=== PATIENT | female | born 1970 | race Caucasian/White ===

== ENCOUNTER 2020-06-01 10:53 | Outpatient (REF) | payer OTHER, SELFPAY ==
--- NOTE | 2020-06-01 10:58 | MM_ITS ---
EXAMINATION: MM SCREENING DIGITAL BREAST TOMOSYNTHESIS, BILATERAL CLINICAL INFORMATION: Screening. Asymptomatic. The lifetime risk of breast cancer based on the Tyrer-Cuzick Model is 5%. COMPARISON: Mammography: 10/01/2018, 09/26/2017, 05/16/2016 TECHNIQUE: Digital breast tomosynthesis is performed in both the craniocaudal and mediolateral oblique views along with computer-aided detection (CAD). Synthesized 2D images are generated from the tomosynthesis. FINDINGS: There are scattered areas of fibroglandular density (ACR BI-RADS breast composition Category b). There are no significant masses, abnormal calcifications, or other abnormalities. Incidental intramammary node again seen mid 9:00 right breast. Parenchymal pattern is similar to prior studies. No significant changes. MM/MM tomosynthesis screening BI IMPRESSION: No mammographic evidence of malignancy. ASSESSMENT: BI-RADS 2: Benign RECOMMENDATION: Routine annual mammography screening. This patient's information was entered into a reminder system with a target due date for their next mammogram.
== END 2020-06-01 10:54 | disposition home or self-care (01) ==
LOC: HO.MAMMO 10:53
PROVIDERS: PCP Nurse Practitioner Family; Visit Provider Nurse Practitioner Family
DX: Z12.31 Encounter for screening mammogram for malignant neoplasm of breast (principal)
CPT/HCPCS: 77063; 77067

== ENCOUNTER 2021-05-11 14:07 | Outpatient (REF) | payer OTHER, SELFPAY ==
--- NOTE | ~2021-05-11 | MM_ITS ---
EXAMINATION: BONE DENSITOMETRY CLINICAL INDICATION: Osteoporosis. COMPARISON: Previous BD dated 04/18/2019 and baseline BD dated 02/08/2007. TECHNIQUE: Using a Deezer DXA System (software version: 13.1) manufactured by [employer], dual-energy x-ray absorptiometry was performed of the lumbar spine and left hip. The images are of good technical quality. Summary results are attached. FINDINGS: AP SPINE L1-L4: Current: BMD 0.906 g/cm2, Z-score -2.1, T-score -2.3, osteopenia, 3.4% increase from previous, 12.1% increase from baseline (<5% change is not significant). Prior: BMD 0.876 g/cm2. Baseline: BMD 0.808 g/cm2. LEFT FEMUR, NECK: Current: BMD 0.892 g/cm2, Z-score -0.4, T-score -1.1, osteopenia. Prior: BMD 0.881 g/cm2. Baseline: BMD 0.891 g/cm2. LEFT FEMUR, TOTAL: Current: BMD 0.980 g/cm2, Z-score 0.2, T-score -0.2, normal, 1.6% increase from previous, 12.9% increase from baseline (<5% change is not significant). Prior: BMD 0.965 g/cm2. Baseline: BMD 0.868 g/cm2. IDENTIFIED RISK FACTORS: Early menopause, secondary osteoporosis, hysterectomy, bilateral oophorectomy. HISTORY OF FRACTURE: None listed. MEDICATIONS: Calcium supplements or multivitamin, vitamin D. MM/XR DEXA axial skeleton IMPRESSION: 1. DIAGNOSIS: Osteopenia based on the lowest T-score value of -2.3 in the lumbar spine applying World Health Organization criteria. 2. 10-YEAR FRACTURE RISK PREDICTION, FRAX: Major osteoporotic fracture (clinical spine, forearm, hip or shoulder) 2.0%. Hip fracture 0.1%. 3. Treatment Recommendations: NOF guidelines recommend consideration for treatment in postmenopausal women and men age 50 and older presenting with the following: -A hip or vertebral (clinical or morphometric) fracture. -T-score less than or equal to -2.5 at the femoral neck or spine after appropriate evaluation to exclude secondary causes. -Low bone mass at the hip or spine and a 10-year fracture probability by FRAX of greater than or equal to 3% for hip fracture or greater than or equal to 20% for major osteoporotic fracture based on the [place] adapted WHO algorithm. 4. Other Recommendations: All treatment decisions require clinical judgment and consideration of individual patient factors, including patient preferences, comorbidities, previous drug use, risk factors not captured in the FRAX model (e.g. frailty, falls, vitamin D deficiency, increased bone turnover, interval significant decline in bone density) and possible under or overestimation of fracture risk by FRAX. Additional medical evaluation for secondary cause of low bone mineral density may be appropriate. FUTURE SCAN RECOMMENDATION: People with diagnosed cases of osteoporosis or at high risk for fracture should have regular bone mineral density tests. For patients eligible for Medicare, routine testing is allowed once every 2 years. The testing frequency can be increased to one year for patients who have rapidly progressing disease, those who are receiving or discontinuing medical therapy to restore bone mass, or have additional risk factors.
== END 2021-05-11 14:08 | disposition home or self-care (01) ==
LOC: HO.MAMMO 14:07
PROVIDERS: PCP Internal Medicine; Visit Provider Internal Medicine
DX: Z13.820 Encounter for screening for osteoporosis (principal); M81.8 Other osteoporosis without current pathological fracture; K59.00 Constipation, unspecified; Z78.0 Asymptomatic menopausal state; Z98.890 Other specified postprocedural states; Z90.722 Acquired absence of ovaries, bilateral; Z79.899 Other long term (current) drug therapy
CPT/HCPCS: 77080

== ENCOUNTER 2021-06-28 10:56 | Outpatient (REF) | payer OTHER, SELFPAY ==
[2021-06-28 12:03] LABS: COVID-19 Test Negative (Negative); IDNOW Serial# 16C4AD1C
== END 2021-06-28 10:57 | disposition home or self-care (01) ==
LOC: HO.LAB 10:56
PROVIDERS: Visit Provider Internal Medicine
DX: Z20.822 Contact with and (suspected) exposure to COVID-19 (principal)
CPT/HCPCS: 36415; 87635; C9803

== ENCOUNTER 2021-07-04 11:08 | Outpatient (REF) | payer OTHER, SELFPAY | END 2021-07-04 11:09 | disposition home or self-care (01) | LOC: HO.LAB 11:08 | PROVIDERS: Visit Provider Internal Medicine | DX: Z13.89 Encounter for screening for other disorder (principal) | CPT/HCPCS: 36415; 87635; C9803 ==

== ENCOUNTER 2021-12-23 09:34 | Outpatient (REF) | payer OTHER, SELFPAY ==
--- NOTE | ~2021-12-23 | XR_ITS ---
EXAMINATION: XR CHEST CLINICAL INFORMATION: Chest pain. COMPARISON: None TECHNIQUE: 2 views of the chest were obtained. FINDINGS: The lungs are well-expanded and clear. The heart size and pulmonary vascularity is normal. No gross bony abnormality seen. XR/XR chest 2V IMPRESSION: Unremarkable chest exam.
[2021-12-23 10:21] LABS: D Dimer High Sensitivity 434 NG/ML
== END 2021-12-23 09:35 | disposition home or self-care (01) ==
LOC: HO.XRAY 09:34
PROVIDERS: Absent Provider Internal Medicine; PCP Internal Medicine; Visit Provider Emergency Medicine
DX: R07.9 Chest pain, unspecified (principal)
CPT/HCPCS: 36415; 71046; 85379

== ENCOUNTER 2022-04-24 12:29 | Outpatient (REF) | payer OTHER, SELFPAY ==
--- NOTE | ~2022-04-24 | MM_ITS ---
EXAMINATION: MM SCREENING DIGITAL BREAST TOMOSYNTHESIS, BILATERAL CLINICAL INFORMATION: Screening. Asymptomatic. The lifetime risk of breast cancer based on the Tyrer-Cuzick Model is 7.6%. COMPARISON: Mammography: June 01, 2020 and studies dating back to August 16, 2015 TECHNIQUE: Digital breast tomosynthesis is performed in both the craniocaudal and mediolateral oblique views along with computer-aided detection (CAD). Synthesized 2D images are generated from the tomosynthesis. FINDINGS: There are scattered areas of fibroglandular density (ACR BI-RADS breast composition Category b). There are no significant masses, abnormal calcifications, or other abnormalities. MM/MM tomosynthesis screening BI IMPRESSION: No significant change from ASSESSMENT: BI-RADS 1: Negative RECOMMENDATION: Routine annual mammography screening. This patient's information was entered into a reminder system with a target due date for their next mammogram.
== END 2022-04-24 12:30 | disposition home or self-care (01) ==
LOC: HO.MAMMO 12:29
PROVIDERS: Visit Provider Internal Medicine
DX: Z12.31 Encounter for screening mammogram for malignant neoplasm of breast (principal)
CPT/HCPCS: 77063; 77067

== ENCOUNTER 2023-05-14 19:26 | Outpatient (REF) | payer SELFPAY ==
[2023-05-14 20:12] LABS: Influenza A PCR NEGATIVE (Negative); Influenza B PCR NEGATIVE (Negative); Resp Syncy Virus RNA Qual PCR NEGATIVE (Negative); SARS COV2 PCR INHOUSE NEGATIVE (Negative)
== END 2023-05-14 19:27 | disposition home or self-care (01) ==
LOC: HO.HHCLNP 19:26
PROVIDERS: Visit Provider Internal Medicine
DX: J02.8 Acute pharyngitis due to other specified organisms (principal); Z11.52 Encounter for screening for COVID-19
CPT/HCPCS: 0241U; 87070

== ENCOUNTER 2023-07-26 10:09 | Outpatient (REF) | payer OTHER, SELFPAY ==
[2023-07-26 12:06] LABS: Alanine Aminotransferase 21 U/L (0-31); Albumin Level 4.4 g/dL (3.5-5.0); Alkaline Phosphatase 68 U/L (39-117); Anion Gap 10 (12-20); Aspartate Amino Transferase 21 U/L (5-31); Bilirubin Total 0.4 mg/dL (0.0-1.0); Blood Urea Nitrogen 19 mg/dL (9-16); Calcium 9.7 mg/dL (8.4-10.2); Carbon Dioxide 29 mmol/L (22-29); Chloride 107 mmol/L (96-108); Cholesterol 142 mg/dL (<200); Estimated Glomerular Filt Rate > 60; Glucose Random 82 mg/dL (60-115); HDL Cholesterol 49 mg/dL (>40); LDL Cholesterol Calculated 69 mg/dL (<100); Potassium 4.3 mmol/L (3.3-5.1); Sodium 142 mmol/L (135-145); Total Protein 7.7 g/dL (6.5-8.0); Triglycerides 120 mg/dL (<150)
[2023-07-26 12:16] LABS: HBS Num1 8.95 mIU/mL (0-7.99); HBc Num1 0.17 S/CO (0.00-0.79); HBsAGNum1 0.26 S/CO (0.00-0.99); Hepatitis A Antibody IgM 0.14 Index (0-0.79); Hepatitis B Core Antibody Nonreactive (Nonreactive); Hepatitis B Surface Antigen Negative (Negative); ~HepC Num1 0.16 S/CO (0.00-0.79); ~Hepatitis A Antibody IgM Nonreactive (Nonreactive); ~Hepatitis C Antibody Nonreactive (Nonreactive)
[2023-07-26 12:23] LABS: TSH reflex Free T4 0.85 uIU/mL (0.32-4.0); Vitamin D 25-OH Total 56.2 ng/mL (>30)
[2023-07-26 13:10] LABS: Reflex LDLD? No
[2023-07-26 13:34] LABS: HBS Num2 8.72 mIU/mL (0-7.99); HBS Num3 7.68 mIU/mL (0-7.99); ~Hepatitis B Surface Antibody GRAYZONE (Nonreactive)
[2023-07-28 23:24] LABS: TS Negative Control Passed; TS Panel A 0; TS Panel B 0; TS Positive Control Passed; TSpotTB Negative (Negative)
== END 2023-07-26 10:10 | disposition home or self-care (01) ==
LOC: HO.HHCL 10:09
PROVIDERS: Visit Provider Internal Medicine
DX: Z00.00 Encounter for general adult medical examination without abnormal findings (principal); Z11.1 Encounter for screening for respiratory tuberculosis; M81.8 Other osteoporosis without current pathological fracture
CPT/HCPCS: 36415; 80053; 80061; 82306; 84443; 86481; 86704; 86706; 86709; 86803; 87340

== ENCOUNTER 2023-09-10 11:24 | Outpatient (REF) | payer OTHER, SELFPAY | END 2023-09-10 11:25 | disposition home or self-care (01) | LOC: HO.MAMMO 11:24 | PROVIDERS: Visit Provider Internal Medicine | DX: Z12.31 Encounter for screening mammogram for malignant neoplasm of breast (principal) | CPT/HCPCS: 77063; 77067 ==

== ENCOUNTER → 2023-09-10 11:45 | Outpatient (BNV) | payer OTHER, SELFPAY | PROVIDERS: Visit Provider Radiology Diagnostic Radiology | DX: Z12.31 Encounter for screening mammogram for malignant neoplasm of breast (principal) | CPT/HCPCS: 77063; 77067 ==

== ENCOUNTER 2023-09-25 13:55 | Outpatient (REF) | payer OTHER, SELFPAY ==
--- NOTE | ~2023-09-25 | MM_ITS ---
EXAMINATION: BONE DENSITOMETRY CLINICAL INDICATION: Status post oophorectomy. COMPARISON: Previous BD dated 05/11/2021 and baseline BD dated 02/08/2007. TECHNIQUE: Using a [employer] DXA System (software version: 13.1) manufactured by [employer], dual-energy x-ray absorptiometry was performed of the lumbar spine and left hip. The images are of good technical quality. Summary results are attached. FINDINGS: LEFT FEMUR, NECK: Current: BMD 0.941 g/cm2, Z-score 0.0, T-score -0.7, normal. Prior: BMD 0.892 g/cm2. Baseline: BMD 0.891 g/cm2. LEFT FEMUR, TOTAL: Current: BMD 0.980 g/cm2, Z-score 0.0, T-score -0.2, normal, 0.0% no change from previous, 12.9% increase from baseline (<5% change is not significant). Prior: BMD 0.980 g/cm2. Baseline: BMD 0.868 g/cm2. AP SPINE L1-L4: Current: BMD 0.853 g/cm2, Z-score -2.4, T-score -2.7, osteoporosis, 5.8% decrease from previous, 5.6% increase from baseline (<5% change is not significant). Prior: BMD 0.906 g/cm2. Baseline: BMD 0.808 g/cm2. IDENTIFIED RISK FACTORS: Bilateral oophorectomy, early menopause, hysterectomy, secondary osteoporosis. HISTORY OF FRACTURE: None listed. MEDICATIONS: Vitamin D. MM/XR DEXA axial skeleton IMPRESSION: 1. DIAGNOSIS: Osteoporosis based on the lowest T-score value of -2.7 in the lumbar spine applying World Health Organization criteria. 2. 10-YEAR FRACTURE RISK PREDICTION, FRAX: According to the guidelines, FRAX calculation should only be performed on patients in the osteopenia bone density category. Therefore, FRAX was not performed on this patient. 3. Treatment Recommendations: NOF guidelines recommend consideration for treatment in postmenopausal women and men age 50 and older presenting with the following: -A hip or vertebral (clinical or morphometric) fracture. -T-score less than or equal to -2.5 at the femoral neck or spine after appropriate evaluation to exclude secondary causes. -Low bone mass at the hip or spine and a 10-year fracture probability by FRAX of greater than or equal to 3% for hip fracture or greater than or equal to 20% for major osteoporotic fracture based on the [place] adapted WHO algorithm. 4. Other Recommendations: All treatment decisions require clinical judgment and consideration of individual patient factors, including patient preferences, comorbidities, previous drug use, risk factors not captured in the FRAX model (e.g. frailty, falls, vitamin D deficiency, increased bone turnover, interval significant decline in bone density) and possible under or overestimation of fracture risk by FRAX. Additional medical evaluation for secondary cause of low bone mineral density may be appropriate. FUTURE SCAN RECOMMENDATION: People with diagnosed cases of osteoporosis or at high risk for fracture should have regular bone mineral density tests. For patients eligible for Medicare, routine testing is allowed once every 2 years. The testing frequency can be increased to one year for patients who have rapidly progressing disease, those who are receiving or discontinuing medical therapy to restore bone mass, or have additional risk factors.
== END 2023-09-25 13:56 | disposition home or self-care (01) ==
LOC: HO.MAMMO 13:55
PROVIDERS: PCP Internal Medicine; Visit Provider Internal Medicine
DX: Z13.820 Encounter for screening for osteoporosis (principal); M81.8 Other osteoporosis without current pathological fracture; Z78.0 Asymptomatic menopausal state
CPT/HCPCS: 77080

== ENCOUNTER 2024-09-15 11:18 | Outpatient (REF) | payer OTHER, SELFPAY ==
--- OUTSIDE RECORDS SUMMARY | 2024-09-15 13:28 | XMS_ITS | Encounter Summary ---
Author Organization [facility] Address [address] [place] [address] Care Team Providers Care Epic Ambulatory Analysts Name Role Phone Dayna Gutierres MD Primary Care Provider + Reason for Visit * Reason Comments Med Refill Encounter Details Date Type Department Care Team ([facility] st Contact Info) Description 05/14/2023 Refill [facility] [address] [place] [address] Dayna Gutierres MD [address] [place] [address] Pharyngitis due to other organism Social History Tobacco Use Types Packs/Day Years Used Date Smoking Tobacco: Never Passive Smoke Exposure: Never Smokeless Tobacco: Never Alcohol Use Standard Drinks/Week Comments Never 0 (1 standard drink = 0.6 oz pur e alcohol) Depression Answer Date Recorded Patient Health Questionnaire-9 Score 0 07/31/2022 Housing Stability Answer Date Recorded What is your housing situation today? I have archie oliveros 05/03/[address] you li ve. Do you have problems with any of the following? None of the above 05/03/2023 Food Insecurity Answer Date Recorded Within the past 12 months, y ou worried that your food would run out before you got money to buy more: Never True 05/03/2023 Within the past 12 months,th e food you bought just didn't last and you didn't have enough money to get more: Never True 08/2022 Transportation Answer Date Recorded In the past 12 months, has l ack of transportation kept you from medical appts, meetings, work or from getting things needed for daily living? No 05/03/2023 Utilities Answer Date Recorded In the past 12 months, has t he electric, gas, oil or water company threatened to shut off services in your home? No 05/03/2023 Depression Answer Date Recorded Patient Health Questionnaire-2 Score 0 07/31/2022 Comments Unknown Sex and Gender Information Value Date Recorded Sex Assigned at Female 05/01/2022 10:19 AM EDT Legal Sex Female 10:19 AM EDT Gender Identity Female 05/01/2022 10:19 AM EDT Sexual Orientation Straight 05/01/2022 10 :19 AM EDT documented as of this encounter Plan of Treatment Upcoming Encounters Date Type Department Care Team (Late st Contact Info) Description 11/03/2024 10:30 AM EDT Office Visit [facility] [address] [place] [phone] Dayna Gutierres MD [address] [place] [address] documented as of this encounter Visit Diagnoses Diagnosis Pharyngitis due to other organism documented in this encounter Additional Health Concerns Assessment Noted Time PHQ-9 Depression Total Score: 0 07/31/19 23 9:36 AM EST documented as of this encounter Care Teams Epic Ambulatory Analysts Relationship Specialty Start Date End Date Dayna Gutierres MD [address] [place] [phone] PCP - General Family Medicine 08/10/20 documented as of this encounter
--- OUTSIDE RECORDS SUMMARY | 2024-09-15 13:28 | XMS_ITS | Encounter Summary ---
Author Organization [facility] Address [address] [place] [address] Care Team Providers Care Bonding Agent Name Role Phone Dayna Gutierres MD Primary Care Provider + Encounter Details Date Type Department Care Team (Late st Contact Info) Description 07/10/2022 Orders Only [facility] [address] [place], [place] [phone] Gerri Chiu LPN Social History Tobacco Use Types Packs/Day Years Used Date Smoking Tobacco: Never Assessed Comments Unknown Sex and Gender Information Value [...] Description 11/03/2024 10:30 AM EDT Office Visit [facility] [address] [place] [address] Dayna Gutierres MD [address] [place], [place] [phone] documented as of this encounter Visit Diagnoses Not on filedocumented in this encounter Care Teams Bonding Agent Relationship Specialty Start Date End Date Dayna Gutierres MD [address] [place], [place] [phone] PCP - General Family Medicine 08/10/20 documented as of this encounter
--- OUTSIDE RECORDS SUMMARY | 2024-09-15 13:28 | XMS_ITS | Encounter Summary ---
Author Organization [facility] Address [address] [place] [address] Care Team Providers Care Tobacco Stemmer Machine Name Role Phone Dayna Gutierres MD Primary Care Provider + Encounter Details Date Type Department Care Team (Latest Contact Info) Description 08/01/2019 Abstract [facility] Dental, Provider, DDS Social History Tobacco Use Types Packs/Day Years [...] Description 11/03/2024 10:30 AM EDT Office Visit [facility] [address] [place] [address] Dayna Gutierres MD [address] [place] [address] documented as of this encounter Visit Diagnoses Not on filedocumented in this encounter Care Teams Tobacco Stemmer Machine Relationship Specialty Start Date End Date Dayna Gutierres MD [address] [place] [address] PCP - General Family Medicine 08/10/20 documented as of this encounter
--- OUTSIDE RECORDS SUMMARY | 2024-09-15 13:28 | XMS_ITS | Encounter Summary ---
Author Organization [employer] Address [address] 7t [place] [address] Care Team Providers Care Office Assistant Receptionist Name Role Phone Dayna Gutierres MD Primary Care Provider + Reason for Visit * Reason Onset Date Comments Nurse Triage 05/16/2023 Encounter Details Date Type Department Care Team ([facility] st Contact Info) Description 05/16/2023 Telephone [facility] [address] [place] [address] Dayna Gutierres MD [address] [place] [address] Nurse Triage Social History Tobacco Use Types Packs/Day Years [...] AM EDT documented as of this encounter Miscellaneous Notes * Telephone Encounter - Arline Weinstein RN - 05/16/2023 11:42 AM EST Triage call with [facility] [place] [id number] Pt reports cough persists and keeps awake at night. Pt was seen in [facility] 05/14/23 and dx of pharyngitis given. Pt has been using the flonase, tylenol and zyrtec as prescribed but, reports still has nasal congestion, slight cough and eyes are irritated. Pt only drinks 2 bottles of water daily. Pt is advised to increase liquids to 6-8 glasses per day (64 oz) and especially adding warm drinks IE. decaf tea , try 2 tsp of honey at bed time. Use the hot steam of the shower to bring moisture for breathing. Continue with medications as prescribed. Pt agrees with home care disposition and Pt will call back if no change. Protocol Used: Cough (Adult) Protocol-Based Disposition: Home Care Positive Triage Question: * Cough with cold symptoms (e.g., runny nose, postnasal drip, throat clearing) * All higher-acuity triage questions were negative Care Advice Discussed: * Reassurance and Education - Cough * Cough Medicines * Coughing Spells * Prevent Dehydration * Humidifier * Reasons To Call Back - Difficulty breathing - Cough lasts more than 3 weeks - Fever lasts more than 3 days - You become worse * Telephone Encounter - Wendy Canela - 05/16/2023 10:56 AM EST Tc from pt returning call and requesting a call back. * Telephone Encounter - Arline Weinstein RN - 05/16/2023 10:33 AM EST Triage call with [facility] attempted x2. Pt didn't answer. Left voice message to call [phone] when available. * Telephone Encounter - Oliva Poole - 05/16/2023 9:41 AM EST Symptom: Sleeping Difficulty Outcome: Schedule an appointment to be seen within 24 hours Reason: pt is having difficulty sleeping due to cough and is requesting medication to help her sleep. The caller accepted this outcome Please contact pt at [phone] (scheduling representative needed) documented in this encounter Plan of Treatment Upcoming Encounters Date Type Department Care Team (Late st Contact Info) Description 11/03/2024 10:30 AM EDT Office Visit [facility] [address] [place] [address] Dayna Gutierres MD [address] [place] [address] documented as of this encounter Visit Diagnoses Not on filedocumented in this encounter Additional Health Concerns Assessment Noted Time PHQ-9 Depression Total Score: 0 07/31/19 23 9:36 AM EST documented as of this encounter Care Teams Office Assistant Receptionist Relationship Specialty Start Date End Date Dayna Gutierres MD [address] [place], [place] [phone] PCP - General Family Medicine 08/10/20 documented as of this encounter
--- OUTSIDE RECORDS SUMMARY | 2024-09-15 13:28 | XMS_ITS | Encounter Summary ---
Author Organization [employer] Address [address] [place] [address] Care Team Providers Care Director Of Food And Beverage Services Name Role Phone Dayna Gutierres MD Primary Care Provider + Reason for Visit * Reason Comments Med Refill Encounter Details Date Type Department Care Team (Late st Contact Info) Description 07/15/2024 Refill [facility] [address] [place], [place] [phone] Dayna Gutierres MD [address] [place] [address] Social History Tobacco Use Types Packs/Day Years Used Date Smoking Tobacco: Never Passive Smoke Exposure: Never Smokeless Tobacco: Never Alcohol Use Standard Drinks/Week Comments Never 0 (1 standard drink = 0.6 oz pur e alcohol) Depression Answer Date Recorded Patient Health Questionnaire-9 Score 0 07/31/2022 Housing Stability Answer Date Recorded What is your housing situation today? I have archie oliveros 08/27/[address] you li ve. Do you have problems with any of the following? None of the above 08/27/2023 Food Insecurity Answer Date Recorded Within the past 12 months, y ou worried that your food would run out before you got money to buy more: Never True 08/27/2023 Within the past 12 months,th e food you bought just didn't last and you didn't have enough money to get more: Never True Transportation Answer Date Recorded In the past 12 months, has l ack of transportation kept you from medical appts, meetings, work or from getting things needed for daily living? No 08/27/2023 Utilities Answer Date Recorded In the past 12 months, has t he electric, gas, oil or water company threatened to shut off services in your home? No 08/27/2023 Depression Answer Date Recorded Patient Health Questionnaire-2 Score 0 08/27/2023 Comments No Sex and Gender Information Value Date Recorded Sex Assigned at Female 05/01/2022 10:19 AM EDT Legal Sex Female 10:19 AM EDT Gender Identity Female 05/01/2022 10:19 AM EDT Sexual Orientation Straight 05/01/2022 10 :19 AM EDT documented as of this encounter Plan of Treatment Upcoming Encounters Date Type Department Care Team (Late st Contact Info) Description 11/03/2024 10:30 AM EDT Office Visit [facility] [address] [place] [phone] Dayna Gutierres MD [address] [place] [address] documented as of this encounter Visit Diagnoses Not on filedocumented in this encounter Additional Health Concerns Assessment Noted Time PHQ-9 Depression Total Score: 0 07/31/19 23 9:36 AM EST documented as of this encounter Care Teams Director Of Food And Beverage Services Relationship Specialty Start Date End Date Dayna Gutierres MD [address] [place] [phone] PCP - General Family Medicine 08/10/20 documented as of this encounter
--- OUTSIDE RECORDS SUMMARY | 2024-09-15 13:28 | XMS_ITS | Encounter Summary ---
Author Organization [employer] Address [address] [place] [address] Care Team Providers Care Backup Administrator Name Role Phone Dayna Gutierres MD Primary Care Provider + Reason for Visit * Reason Comments Med Refill Encounter Details Date Type Department Care Team (Late st Contact Info) Description 07/30/2023 Refill [facility] [address] [place], [place] [phone] Dayna Gutierres MD [address] [place] [address] Vitamin D deficiency Social History Tobacco Use Types Packs/Day Years [...] 10:30 AM EDT Office Visit [facility] [address] [place] [address] Dayna Gutierres MD [address] [place] [address] documented as of this encounter Visit Diagnoses Diagnosis Vitamin D deficiency documented in this encounter Additional Health Concerns Assessment Noted Time PHQ-9 Depression Total Score: 0 07/31/19 23 9:36 AM EST documented as of this encounter Care Teams Backup Administrator Relationship Specialty Start Date End Date Dayna Gutierres MD [address] [place] [phone] PCP - General Family Medicine 08/10/20 documented as of this encounter
--- OUTSIDE RECORDS SUMMARY | 2024-09-15 13:28 | XMS_ITS | Clinical Summary ---
Author Organization [employer] Address [address] [place] [address] Care Team Providers Care Chemist Biological Name Role Phone Dayna Gutierres MD Primary Care Provider + Allergies No known active allergies Medications cetirizine (ZyrTEC) 10 MG tabletIndicatio ns:Pharyngitis due to other organism Take 1 tablet (10 mg) by mouth in the morning. 30 tablet 3 Active fluticasone (Flonase) 50 MCG/ACT nasal sprayIndication s:Pharyngitis due to other organism Administer 1 spray into each nostril in the morning. 16 g 3 Active Calcium-Magnesi um-Vitamin D ER (Citracal Calcium +D3) 600-40-500 MG-MG-UNIT tablet sustained-relea se 24 hour Take 1 tablet by mouth Once per day. 90 tablet 3 4 04/28/20 25 Active alendronate (Fosamax) 70 MG tablet Take 1 tablet (70 mg) by mouth every 7 (seven) days. Take in the morning with a full glass of water, on an empty stomach, and do not take anything else by mouth or lie down for the next 30 min. 12 tablet 3 5 07/14/19 26 Active Active Problems Problem Noted Date Diagnosed Date Lateral epicondylitis of left elbow 07/14/2024 Assessment & Plan (07/14/2024 9:35 AM EST): Likely due to overuse. Advised to use an elbow strap for lifting weights heavier than 10 lb. Use diclofenac gel or Tylenol prn. Declined OT referral today, will call back prn. FU in 6m Overweight 04/28/2024 Assessment & Plan (07/14/2024 9:18 AM EST): Discussed re weight reduction options including exercise, life style modifications, diet. Recommended to decrease soda and sugary beverage consumption, increase protein intake with meals (at least 1 portion of protein with each meal) to assist with satiety, increase dietary fiber Recommended at least 150 min/week of moderate intensity exercise. Declined a referral to dietitian Assessment & Plan (04/28/2024 12:39 PM EDT): She's been losing few lb and feels well. FU in 6m Venous (peripheral) insufficiency 04/28/2024 Assessment & Plan (04/28/2024 12:34 PM EDT): Mild, advised to use compression stocking 15-20mmHg prn. Localized osteoarthritis of hand 04/28/2024 Assessment & Plan (04/28/2024 12:38 PM EDT): Mild Advised to use hand and wrist compression gloves at night and prn pain Take Tylenol prn FU in 6mo Bunion of left foot 08/27/2023 Assessment & Plan (08/27/2023 10:53 AM EST): Recommended to use bunion corrector sleeve and appropriate foot wear. FU prn Acute cough 05/21/2023 Assessment & Plan (05/21/2023 3:40 PM EST): Drink plenty of fluids and rest Tinea pedis 01/26/2023 Lactose intolerance 01/26/2023 COVID-19 01/26/2023 Encounter for preventive health examination 07/04 Assessment & Plan (07/14/2024 9:37 AM EST): Discussed with patient re increase fresh fruit and vegetable intake. Counseled re moderate exercise as tolerated, up to 20min/d Patient feels safe at home. PAP smear: No need for addtl PAP due to SHARIF Mammogram: UTD, next one due on 08/2024 Bone density test: UTD, next one due on 2025 Eye exam: UTD, next one due on 08/2024 CRC screen: Cologuard UTD, next one due on 2026 Lipids/FBS: UTD, next ones due on 08/2025 Vaccinations: Declined Covid booster today, other adult Izs are UTD Dental visit: Overdue, advised to make appt at her dentist. Assessment & Plan (10/18/2023 10:23 AM EDT): Discussed with patient re increase fresh fruit and vegetable intake. Counseled re moderate exercise as tolerated, up to 20min/d Patient feels safe at home. PAP smear: No need for addtl PAP due to SHARIF Mammogram: Overdue, TBP Bone density test: Will order Dexa scan Eye exam: UTD, next one due on 08/2024 CRC screen: D/w her re screen options, she wants to do cologuard, I gave her info re colonoscopy as well. Lipids/FBS: UTD, next ones due on 08/2024 Vaccinations: Order TB and IZ titers, declined covid and Influenza boosters. Dental visit: Overdue, advised to make appt at her dentist. Assessment & Plan (08/29/2023 1:45 PM EST): Cologuard uptodate, next CRC screen due on 2026. Influenza vax and Hep B booster today Assessment & Plan (01/29/2023 10:28 AM EDT): information for colonoscopy given to pt to reschedule test I also gave her information about cologuard she will follow up PRN otherwise within one year Assessment & Plan (07/31/2022 10:36 AM EST): Discussed with patient re increase fresh fruit and vegetable intake. Counseled re moderate exercise as tolerated, up to 20min/d Patient feels safe at home. PAP smear no need for PAP smear any longer due to SHARIF + BSOO Mammogram up to date, due April 2023 Bone density to be ordered Eye exam refer to optometry CRC screen will order colonoscopy Lipids/FBS to be ordered Vaccinations Influenza and Covid iz today Dental visit will make an appointment with dental clinic Surgical menopause 07/31/2022 Assessment & Plan (07/31/2022 10:37 AM EST): s/p SHARIF + BSOO do to benign conditions order BMD test recommended daily outdoor exercise as tolerated avoid smoking. Dietary counseling 07/31/2022 Exercise counseling 07/31/2022 Constipation 07/30/2015 S/P SHARIF-BSO 07/30/2015 Osteoporosis 07/30/2015 Assessment & Plan (04/28/2024 12:35 PM EDT): Tolerates fosamax well, will continue until at least 08/2025 Restart Ca + D Recheck vit D levels next year, advised re risk of fractures. FU dexa scan after 08/2025 Assessment & Plan (10/18/2023 10:20 AM EDT): Will order dexa scan Cont Ca + D Resolved Problems Problem Noted Date Diagnosed Date Resolved Date Osteopenia 01/26/2023 04/28/2024 Assessment & Plan (08/29/2023 1:43 PM EST): BMD test appt infor given today so she can schedule appt. Continue daily Vit D for now and fu with me in 3-4m Assessment & Plan (01/29/2023 10:29 AM EDT): Bone density test pending, pt given information to reschedule appointment Counseled regarding outdoor exercise and sun exposure for at least 15 minutes daily Encounters Date Type Department Care Team Description 08/11/2024 Telephone [facility] [address] [place], [place] [phone] Dyana Gutierres MD Appointment Request 08/01/2024 Telephone [facility] [address] [place] [address] Dayna Gutierres MD September07/15/2024 Refill [facility] [address] [place], [place] [phone] Dayna Gutierres MD 07/14/2024 9:15 AM EST Office Visit [facility] [address] [place] [address] Dayna Gutierres MD Encounter for preventive health examination (Primary Dx); Lateral epicondylitis of left elbow; Overweight; Dietary counseling; Exercise counseling 07/14/2024 Travel 07/07/2024 Travel 07/04/2024 Patient Outreach [facility] [address] [place] [address] Dayna Gutierres MD Pre-visit Planning (SDVT screening completed on 08/27/2023) from Last 3 Months Immunizations Name Administration Dates Next Due Hep B, adult 08/27/2023, 9,03/11/2008,01/28 Influenza injectable quadriv alent IIV4 with preservative 03/19/2019,05/10/2017,07/30/2015 Influenza injectable quadriv alent preservative free 08/27/2023,07/31/2022,04/12/2021,03/24,06/04/2018,06/14/2016 Influenza, IIV3, injectable 05/20/2014 Influenza, Split (incl. ramesh fied surface antigen) 04/30/2013 Influenza, seasonal, injecta ble, preservative free 04/28/2024 MMR 02/05/2008 Measles 09/30/1977 Meningococcal MCV4P ACYW-135 11/08/2018 Pfizer Covid-19 Vaccine 12+ Bivalent 07/31/2022 TD (adult), 2 Lf tetanus tox oid, preservative free, adsorbed 06/08/2021,02/05/2008 Tdap 03/28/2011,07/02/2005 Social History Tobacco Use Types Packs/Day Years Used Date Smoking Tobacco: Never Passive Smoke Exposure: Never Smokeless Tobacco: Never Tobacco Cessation:Counseling Given: Not Answered Alcohol Use Standard Drinks/Week Comments Never 0 [...] Orientation Straight 05/01/2022 10 :19 AM EDT Last Filed Vital Signs Vital Sign Reading Time Taken Comments Blood Pressure 110/76 07/14/2024 8:59 AM EST Pulse 68 07/14/2024 8:59 AM EST Temperature 36.2 ??C (97.2 ??F) 07/14/2024 8:59 AM ES T Respiratory Rate 16 07/14/2024 8:59 AM EST Oxygen Saturation 100% 04/28/2024 9:29 AM EDT Inhaled Oxygen Concentration - - Weight 69.4 kg (153 lb) 07/14/2024 8:59 AM EST Height 162.6 cm (5' 4 ) 07/14/2024 8:59 AM EST Body Mass Index 26.26 07/14/2024 8:59 AM EST Plan of Treatment Upcoming Encounters Date Type Department Care Team (Late st Contact Info) Description 11/03/2024 10:30 AM EDT Office Visit [facility] [address] [place] [address] Dayna Gutierres MD [address] [place] [address] Health Maintenance Due Date Last Done Comments CT Colonography 1972 Colonoscopy 1972 FIT 1972 FOBT 1972 HIV Screening 1970 Sigmoidoscopy 1972 Alcohol/Substance Use Screening 1984 Family Planning (PISQ) 11/20/1987 Dental Oral Exam 01/31/2020 08/01/2019, , 02/14/2018 Dental Prophylaxis 01/31/2020 08/01/2019 Dental X-Ray: Bitewings 08/02/2020 08/01/2019, 02/14 Dental X-Ray: Full Mouth 03/01/2021 02/28/2018, 01/30 Pneumococcal Vaccine: 50+ Years (1 of 1 - PCV) 2022 Zoster Vaccines (1 of 2) 2022 COVID-19 Vaccine ( - season) 2024 07/31/2022, 08/30/2021, 11/21/2020, Additional history exists Depression Screening 08/27/2024 08/27/2023, 07/31/19 23 SDOH Screening 08/27/2024 08/27/2023 Tobacco Screening 07/14/2025 07/14/2024 Mammogram 09/09/2025 09/10/2023, 04/02, 05/11/2021, Additional history exists Colorectal Cancer Screening 08/06/2026 FIT DNA/Cologuard 08/06/2026 08/06/2023 DTaP/Tdap/Td Vaccines (5 - Td or Tdap) 06/08/2031 06/08/2021, 03/28/2011, 02/05/2008, Additional history exists RSV Patients and Patients Aged 60 years or older (1 - 1-dose 75+ series) 11/20/2047 Meningococcal Vaccine Aged Out 11/08/2018 No radha joy eligible based on patient's age to complete this topic Hepatitis C Screening Completed 07/26/2023 Hepatitis B Vaccines Completed 08/27/2023, 07/14/2008, 03/11/2008, Additional history exists Influenza Vaccine Completed 04/28/2024, , 07/31/2022, Additional history exists HIB Vaccines Aged Out No longer eligi ble based on patient's age to complete this topic HPV Vaccines Aged Out No longer eligi ble based on patient's age to complete this topic Hepatitis A Vaccines Aged Out No long er eligible based on patient's age to complete this topic IPV Vaccines Aged Out No longer eligi ble based on patient's age to complete this topic RSV under 20 months Aged Out No longe r eligible based on patient's age to complete this topic Rotavirus Vaccines Aged Out No longer eligible based on patient's age to complete this topic Procedures Procedure Name Priority Date/Time Associated Diagnosis Comments BI MAMMOGRAM SCREENING TOMOSYNTHESIS BILATERAL Routine 09/10/2023 11:45 AM EDT LAB COLOGUARD?? COLON CANCER SCREEN Routine 08/06/2023 12:01 AM EST Colorectal cancer (CMS/HCC) HEPATITIS PANEL, GENERAL Routine 07/26/2023 10:13 AM EST Encounter for preventive health examination PROPHYLAXIS - ADULT Routine 08/01/2019 1 2:00 AM EST BITEWINGS - 4 RADIOGRAPHIC IMAGES Routine 08/01/2019 12:00 AM EST PERIODIC ORAL EVALUATION - ESTABLISHED PATIENT Routine 08/01/2019 12:00 AM EST PANORAMIC RADIOGRAPHIC IMAGE Routine 02/28/2018 12:00 AM EDT from Last 3 Months or Most Recently Relevant to Health Maintenance Results * BI Mammogram Screening Tomosynthesis Bilateral (09/10/2023 11:45 AM EDT) Anatomical Region Laterality Modality Breast Bilateral Mammography 09/10/2023 11:4 5 AM EDT Narrative 10/06/2023 11:02 AM EDT ? [facility] [place] ? [address] ?[place] [address] ? Mammography Report ? Signed ? Patient: Abraham Lopez,Angela ?MR#: ?? [id number] ? : 1970 ?Acct:[id number] ? Age/Sex: 52 / F ?ADM Date: 03/11/24 ? Loc: HO.MAMMO ? Attending Dr: Dayna Gutierres MD ? Ordering Physician: Dayna Gutierres MD ?Results: 1Ne ?? gative ? Date of Service: 09/10/23 ?Follow Up: 1 Year From Orig ?? inal Mammogram ? Procedure(s): MM tomosynthesis screening BI ?? Accession Number(s): [id number] ? cc: Dayna Gutierres MD ? EXAMINATION: ?? MM SCREENING DIGITAL BREAST TOMOSYNTHESIS, BILATERAL ? CLINICAL INFORMATION: ? Screening. Asymptomatic. ? COMPARISON: ?? Mammography: This study is compared with prior exams dating back to ?? 2019. ? TECHNIQUE: ?? Digital breast tomosynthesis is performed in both the craniocaudal and ?? mediolateral oblique views along with computer-aided detection (CAD). ?? Synthesized 2D images are generated from the tomosynthesis. ? FINDINGS: ?? There are scattered areas of fibroglandular density (ACR BI-RADS breast ?? composition Category b). ? There are no significant masses, abnormal calcifications, or other ?? abnormalities. ? MM/MM tomosynthesis screening BI ?? IMPRESSION: ?? No mammographic evidence of malignancy. ? ASSESSMENT: ? BI-RADS BI-RADS 1 - Negative ? RECOMMENDATION: ?? Routine annual mammography screening. ? 1 year F/U ? This examination should not preclude the clinical evaluation of a ?? suspicious palpable abnormality. ? This patient's information was entered into a reminder system with a ?? target due date for their next mammogram. ? Dictated By: ?Laurie Conrad MD ? Signed By: ?<Electronically signed by Laurie Conrad MD in OV> ? 10/06/23 1058 ? DD/ 1145 ? TD/TT: ? Mail Deliverer: ? Procedure Note Donotuseinterpreter, Image - 10/06/2023 [facility] [address] [place] [address] Mammography Report Signed Patient: Angela OchoaMR#: [id number] : 1970Acct:[id number] Age/Sex: 52 / FADM Date: 09/10/23 Loc: HO.MAMMO Attending Dr: Dayna Gutierres MD Ordering Physician: Dayna Gutierres MDResults: 1Ne gative Date of Service: 09/10/23Follow Up: 1 Year From Orig ina Mammogram Procedure(s): MM tomosynthesis screening BI Accession Number(s): [id number] cc: Dayna Gutierres MD EXAMINATION: MM SCREENING DIGITAL BREAST TOMOSYNTHESIS, BILATERAL CLINICAL INFORMATION: Screening. Asymptomatic. COMPARISON: Mammography: This study is compared with prior exams dating back to 2019. TECHNIQUE: Digital breast tomosynthesis is performed in both the craniocaudal and mediolateral oblique views along with computer-aided detection (CAD). Synthesized 2D images are generated from the tomosynthesis. FINDINGS: There are scattered areas of fibroglandular density (ACR BI-RADS breast composition Category b). There are no significant masses, abnormal calcifications, or other abnormalities. MM/MM tomosynthesis screening BI IMPRESSION: No mammographic evidence of malignancy. ASSESSMENT: BI-RADS BI-RADS 1 - Negative RECOMMENDATION: Routine annual mammography screening. 1 year F/U This examination should not preclude the clinical evaluation of a suspicious palpable abnormality. This patient's information was entered into a reminder system with a target due date for their next mammogram. Dictated By: Laurie Conrad MD Signed By: <Electronically signed by Laurie Conrad MD in OV> 10/06/23 1058 DD/ 1145 TD/TT: Mail Deliverer: Dayna Gutierres MD IMG BI PROCEDURES Final Result * Cologuard?? colon cancer screening (08/06/2023 12:01 AM EST) Cologuard Result Negative Negative 08/21/19 11:27 AM EST [facility] (CLIA #:[id number]) Comment: NEGATIVE TEST RESULT. A negative Cologuard result indicates a low likelihood that a colorectal cancer (CRC) or advanced adenoma (adenomatous polyps with more advanced pre-malignant features) ??is present. The chance that a person with a negative Cologuard test has a colorectal cancer is less than 1 in 1500 (negative predictive value >99.9%) or has an ??advanced adenoma is less than ??5.3% (negative predictive value 94.7%). These data are based on a prospective cross-sectional study of 10,000 individuals at average risk for colorectal cancer who were screened with both Cologuard and colonoscopy. (Imperialshaun T. et al, N Engl J Med 2014;370(14):1286- 1297) The normal value (reference range) for this assay is negative. COLOGUARD RE-SCREENING RECOMMENDATION: Periodic colorectal cancer screening is an important part of preventive healthcare for asymptomatic individuals at average risk for colorectal cancer. ??Following a negative Cologuard result, the [place] [employer] and U.S. Multi-Society Task Force screening guidelines recommend a Cologuard re-screening interval of 3 years. References: [place] [employer] Guideline for Colorectal Cancer Screening: https://www.cancer.org/cancer/aioce-hfveag-blfbuo/xxatuqbhl-fvrqzhauu-nlphrgu/ac s-rec ommendations.html.; David MORGAN, Nuvia REYES, Aditya BecerrilK, Colorectal Cancer Screening: Recommendations for Physicians and Patients from the U.S. Multi-Society Task Force on Colorectal Cancer Screening , Am J Gastroenterology 2017; 112:6160-0184. TEST DESCRIPTION: Composite algorithmic analysis of stool DNA-biomarkers with hemoglobin immunoassay. ?? Quantitative values of individual biomarkers are not reportable and are not associated with individual biomarker result reference ranges. Cologuard is intended for colorectal cancer screening of adults of either sex, 45 years or older, who are at average-risk for colorectal cancer (CRC). Cologuard has been approved for use by the U.S. FDA. The performance of Cologuard was established in a cross sectional study of average-risk adults aged 50-84. Cologuard performance in patients ages 45 to 49 years was estimated by sub-group analysis of near-age groups. Colonoscopies performed for a positive result may find as the most clinically significant lesion: colorectal cancer [4.0%], advanced adenoma (including sessile serrated polyps greater than or equal to 1cm diameter) [20%] or non- advanced adenoma [31%]; or no colorectal neoplasia [45%]. These estimates are derived from a prospective cross-sectional screening study of 10,000 individuals at average risk for colorectal cancer who were screened with both Cologuard and colonoscopy. (Hernan Lal et al, N Engl J Med 2014;370(14):9287-7168.) Cologuard may produce a false negative or false positive result (no colorectal cancer or precancerous polyp present at colonoscopy follow up). A negative Cologuard test result does not guarantee the absence of CRC or advanced adenoma (pre-cancer). The current Cologuard screening interval is every 3 years. ([place] [employer] and U.S. Multi-Society Task Force). Cologuard performance data in a 10,000 patient pivotal study using colonoscopy as the reference method can be accessed at the following location: www.Genoom/results. Additional description of the Cologuard test process, warnings and precautions can be found at www.Innovegard.com. Stool specimen (specimen) 08/06/2023 12:01 AM EST 08/07/2023 10:49 AM EST us Dayna Gutierres MD LAB MOLECULAR DIAGNOSTIC S ORDERABLES Final Result [facility] (CLIA #:[id number]) [address] [place] [address], * Hepatitis Panel, General (07/26/2023 10:13 AM EST) Hepatitis A IgM Nonreactive Nonreactive [facility] Comment:IgM antibodies to LOYOLA V not detected; does not exclude earlyacute or recovered HAV infection. ~Hepatitis B Surface Antibody GRAYZONE Nonreactive [facility] Comment:GRAYZONE: 8.00 mIU/m L TO 11.99 mIU/mLTHE IMMUNE STATUS OF THE INDIVIDUAL SHOULD BE FURTHERASSESSED BY CONSIDERING OTHER FACTORS, SUCH CLINICALSTATUS, FOLLOW-UP TESTING, ASSOCIATED RISK FACTORS, AND THEUSE OF ADDITIONAL DIAGNOSTIC INFORMATION. Hepatitis B Core Antibody Nonreactive Nonreactive [facility] Hepatitis C Antibody Nonreactive Nonreactive [facility] Comment:Antibodies to HCV no t detected; does not exclude early acuteHCV infection. Hepatitis B Surface Ag Negative Negative [facility] Blood 07/26/2023 10:1 3 AM EST 07/26/2023 11:36 AM EST us Dayna Gutierres MD LAB BLOOD ORDERABLES Fin al Result Performing Organization Address City/State/[facility] Co de Phone Number [facility] [address] [place] [phone] from Last 3 Months or Most Recently Relevant to Health Maintenance Insurance [employer] P[employer] [facility] [place] [facility] [place] [employer] P[employer] Care Teams Chemist Biological Relationship Specialty Start Date End Date Dayna Gutierres MD [address] [place] [phone] PCP - General Family Medicine 08/10/20
== END 2024-09-15 11:19 | disposition home or self-care (01) ==
LOC: HO.MAMMO 11:18
PROVIDERS: PCP Internal Medicine; Visit Provider Internal Medicine
DX: Z12.31 Encounter for screening mammogram for malignant neoplasm of breast (principal)
CPT/HCPCS: 77063; 77067

== ENCOUNTER → 2024-09-15 11:30 | Outpatient (BNV) | payer OTHER, SELFPAY | PROVIDERS: PCP Internal Medicine; Visit Provider Internal Medicine | DX: Z12.31 Encounter for screening mammogram for malignant neoplasm of breast (principal) | CPT/HCPCS: 77063; 77067 ==